=== PATIENT | female | born 1945 | race Caucasian/White ===

== ENCOUNTER 2022-08-18 08:15 | Observation (INO) ==
--- NOTE | 2022-08-14 14:40 | History and Physical Report ---
CHIEF COMPLAINT: Right knee pain, discomfort, and swelling after partial knee replacement. HISTORY OF PRESENT ILLNESS: The patient is a 77-year-old female, who is now about 19 years out from a right partial knee replacement and 18 years out from a left knee replacement. She has done pretty well with these, but over the years, she has developed some pain, discomfort, instability, and swelli ng in her right knee. We have been following this yearly and it has just gradually gotten worse. Mane navarrete has developed progressive varus deformity. She started having more pain. It is fairly global pain . Increased with weightbearing. She would like to have this fixed before she gets too old. PAST MEDICAL HISTORY: Significant for: 1. Elevated cholesterol. 2. Sleep apnea. 3. Anxiety. 4. History of angina. 5. Gastroesophageal reflux disease. PAST SURGICAL HISTORY: Include: 1. Right partial knee replacement done on 05/02/2004. 2. Left total knee replacement done on 08/08/2004. 3. Appendectomy. 4. . 5. Oral surgery. ALLERGIES: AMPICILLIN CAUSES DIARRHEA. CURRENT MEDICATIONS: Include: 1. Atorvastatin. 2. Buspirone. 3. Vitamin D. 4. Vitamin B12. 5. Glucosamine. 6. Omeprazole. 7. Provigil. 8. Zoloft. SOCIAL HISTORY: A 77-year-old white female. She does not smoke. No significant alcohol intake. FAMILY HISTORY: Noncontributory. REVIEW OF SYSTEMS: Negative for diabetes. No chest pain or shortness of breath. No history of DVT or PE. No known bleeding problems. PHYSICAL EXAMINATION: GENERAL: Shows a pleasant elderly female. Looks to be in pretty good health. HEENT: Benign. NECK: Supple. No lymphadenopathy. LUNGS: Clear to auscultation. HEART: Regular rate and rhythm. ABDOMEN: Soft, nontender, and nondistended. EXTREMITIES: Grossly neurovascularly intact except as follows. Examination of the right knee reveals the patient ambulates with a bit of a limp. She has got varus alignment to her knee with a bit of a varus thrust with weightbearing. She has got some moderate chapito us valgus laxity. Minimal knee effusion. Range of motion is 0 to 120. No pain with hip motion. X-RAYS: X-rays of the right knee were reviewed. It shows a right partial knee replacement. 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 The tibial tray is kind of subluxated into the tibia and likely loose. There is a little osteolysis around the keel. She has g ot some patellofemoral arthritis as well. The left knee replacement looks to be in good position without problems. ASSESSMENT: A 77-year-old white female now about 19 years out from a right partial knee replacement and 18 years out from a left total knee replacement with progressive arthritis and possibly loosening of the right partial knee replacement. It served pretty good for a long time, but started to give h er problems and is getting worse with time. She would like to have this fixed. PLAN: We are going to take her to the operating room and do a right revision knee replacement. We w ill convert if we needed to do a full knee replacement. Risks and benefits of this procedure were ex plained to the patient and include, but not limited to DVT, PE, , infection, neurological injury , vascular injury, bleeding problem, pain, limited range of motion, stiffness, failure to relieve her symptoms, incomplete relief of symptoms, need for further surgery in the future, etc. The patient u nderstands and desires to proceed. Informed consent was obtained. We did do an infectious workup. White cell count is normal. Sed rate and C-reactive protein are bot h normal. We did not do an aspiration as there is no clinical suspicion for infection. As far as discharge plans, she is planning to be discharged to home using [facility]. Job ID: [id number]
--- NOTE | 2022-08-14 14:48 | Anesthesiology Consultation ---
Date of Service August 14, 2022 Assessment & Plan (1) Encounter for pre-operative examination: - COVID screening: Per assessment on 08/14: No known COVID-19 positive contacts or current COVID-19 related symptoms. Travel screen negative. Patient vaccinated. At surgeon discretion if preop Covid testing being done. - Outpatient joint assessment: Pt currently scheduled for inpatient pathway. If surgeon requests review for outpatient joint pathway, patient not recommended candidate for outpatient joint program from anesthesia standpoint. Chart Review Chart Review: Acceptable Risk for Surgery and Patient NOT seen in Pre Admission Testing History Surgery Operation Date: 08/18/22 07:00 Proposed Procedures p Right Total Knee Revision, Conversion Unicompartment to Total Knee Arthroplasty - Mark Carnes MD Height/Weight Height: 5 ft 3.5 in Weight: 70.76 kg Allergies Allergy/AdvReac Type Severity Reaction Status Date / Time bee venom protein (honey bee) Allergy Intermediate SWELLING Verified 08/14/22 14:07 ampicillin AdvReac Mild Diarrhea Verified 08/14/22 14:07 Medications Home Medications Medication Instructions Recorded Confirmed Last Taken cholecalciferol (vitamin D3) 25 25 mcg PO QAM 12/27/20 08/14/22 Unknown mcg (1,000 unit) capsule cyanocobalamin (vitamin B-12) 1,000 mcg PO QAM 12/27/20 08/14/22 Unknown 1,000 mcg capsule Prevagen 1 cap PO QAM 03/24/22 08/14/22 Unknown atorvastatin 20 mg tablet 20 mg PO QAM 03/24/22 08/14/22 Unknown buspirone 5 mg tablet 5 mg PO DAILY PRN Anxiety 03/24/22 08/14/22 Unknown glucosamine sulf dipot 1 cap PO BID 03/24/22 08/14/22 Unknown chlr,msm,chond 550 mg-C 30 mg-jane 1 mg capsule (Glucosamine Chondroitin) omeprazole 20 mg capsule,delayed 20 mg PO QAM 03/24/22 08/14/22 Unknown release sertraline 100 mg tablet (Zoloft) 200 mg PO QAM 03/24/22 08/14/22 Unknown Past Medical History Medical History Anxiety Elevated hemidiaphragm Right GERD (gastroesophageal reflux disease) controlled, stable per pt Hearing loss History of blood transfusion Hyperlipidemia Sleep apnea CPAP-compliant Past Family History Family History Other No family history of adverse response to anesthesia Past Surgical History Surgical History History of appendectomy History of section X 2 History of colonoscopy History of left knee replacement History of tooth extraction Status post right partial knee replacement Social History Smoking Status: Never smoker Do You Dip or Chew Tobacco: No Hx Alcohol Use: No alcohol intake frequency: holidays/special occasions only Hx Substance Use: No substance use type: does not use Lab Results Anesthesia Preop Results Results Anesthesia Widget: WBC 6.24 K/ul (4.8-10.8) 08/05/22 Hgb 14.6 g/dl (12.0-16.0) 08/05/22 Hct 44.0 % (37.0-47.0) 08/05/22 Plt 192 K/uL (130-400) 08/05/22 Na 139 mmol/L (136-145) 08/05/22 K 4.3 mmol/L (3.5-5.1) 08/05/22 Cl 102 mmol/L (98-107) 08/05/22 CO2 33 mmol/L (21-32) H 08/05/22 BUN 14 mg/dl (6-23) 08/05/22 Creat 0.89 mg/dl (0.6-1.2) 08/05/22 Glucose Level 98 mg/dl (70-99(Fasting)) 08/05/22 PTT 26.2 Seconds (21.0-31.0) 08/05/22 Blood Type O Positive 08/05/22 Antibody Screen NEGATIVE 08/05/22 Testing Electrocardiogram Date: 04/02/22 NSR, rate 74 bpm Chest X-Ray Date: 04/02/22 No prior studies are available for comparison at the time of dictation. The cardiomediastinal silhouette is unremarkable noting atherosclerotic calcification of the thoracic aorta. Nonspecific interstitial thickening is likely chronic. There is mild elevation of the right hemidiaphragm with bibasilar scarring/atelectasis. There are tiny calcified granulomas. The lungs and pleural spaces are otherwise clear. There is no pneumothorax. The skeletal structures are osteopenic. The bony thorax appears intact. IMPRESSION: No active disease in the chest.
[~2022-08-18 08:15] MED LIST: ACETAMINOPHEN 500 MG TAB PO SCH; BUPIVACAINE LIPOSOME/PF 266 MG, BUPIVACAINE/EPINEPHRINE 50 ML, SODIUM CHLORIDE 0.9% PF ... INFIL SCH; CeleBREX 200 MG CAP PO SCH; FAMOTIDINE 20 MG TAB PO SCH; LR 500ML BOLUS, THEN 15ML/HR IV SCH; LR 60ML/HR IV SCH; METOCLOPRAMIDE HCL 10 MG TABLET PO SCH; ROPIVACAINE 0.5% 5 MG/ML 30 ML VIAL ONE; TRANEXAMIC ACID 1,000 MG **IV Intra-op IV SCH; ceFAZolin 2000MG 2,000 MG/15 ML SYR IV SCH
--- NOTE | 2022-08-18 08:54 | History & Physical Bridge Note ---
Date of Service August 18, 2022 History & Physical Bridge Note I have examined the patient, reviewed the History & Physical and in the interval since the performance of the History & Physical I have noted the following changes of clinical significance: no changes noted
[2022-08-18] MEDS ORDERED: fentaNYL citrate PF 100 MCG/2 ML VIAL ONE (09:07)
[2022-08-18] MEDS ORDERED: MIDAZOLAM HCL 1 MG/ML 2ML VIAL ONE (09:08)
[2022-08-18] MEDS ORDERED: HYDROmorphone INJ 1 MG/ML SYRINGE IV PRN (10:09)
[2022-08-18] MEDS ORDERED: ATROPINE SULFATE 0.1 MG/ML 10ML SYR IV PRN (10:09)
[2022-08-18] MEDS ORDERED: ONDANSETRON INJ 2 MG/ML 2 ML VIAL IV PRN ×2 (10:09→13:51)
[2022-08-18] MEDS ORDERED: ePHEDrine sulfate 50 MG/ML AMP IV PRN (10:09)
[2022-08-18] MEDS ORDERED: KETOROLAC 30 MG/ML VIAL IV PRN (10:09)
[2022-08-18] MEDS ORDERED: BUPIVACAINE 0.25% PF 30 ML VIAL ONE (10:46)
[2022-08-18] MEDS ORDERED: EPINEPHrine INJ 1 MG/ML AMP ONE (10:46)
[2022-08-18] MEDS ORDERED: SODIUM CHLORIDE 0.9% PF 50 ML VIAL ONE (10:46)
[2022-08-18] MEDS ORDERED: BUPIVACAINE LIPOSOME 1.3% 266 MG/20 ML VIAL ONE (10:46)
[2022-08-18] MEDS ORDERED: VANCOMYCIN HCL 1000MG/20ML VIAL ONE (11:00)
[2022-08-18] MEDS ORDERED: DEXAMETHASONE SOD INJ 4 MG/ML VIAL ONE (11:19)
[2022-08-18] MEDS ORDERED: KETOROLAC 30 MG/ML VIAL ONE (11:19)
--- NOTE | 2022-08-18 13:33 | Operative Report ---
PG Post Operative Report Pre & Post Diagnosis Operation Date: 08/18/22 10:40 Pre-Op Diagnosis: Painful Right Unicompartment Knee Replacement Post-Op Diagnosis: Painful Right Unicompartment Knee Replacement I identified the patient and participated in the time-out.: Yes Procedure Operation Date: 08/18/22 10:40 Actual Procedures p Right Total Knee Revision with Conversion of Unicompartment to Total Knee Arthroplasty(Right) - Mark Carnes MD Surgeon Mark Carnes MD Personal Injury Paralegal Jose Peralta PA-C Estimated Blood Loss 50 Findings Consistent with Post-Op Diagnosis Operative findings revealed a right partial knee replacement in place. There was subluxation of the tibial component was but it is not grossly loose. She did have surrounding degenerative changes throughout the remaining portion of her knee joint. Small to moderate-sized joint effusion. No signs of infection. Fluids 1500 cc Specimens Right knee joint fluid sent for stat Gram stain aerobic anaerobic culture. Right knee specimen sent for pathology Drains None Complications none Disposition Accompanied Patient To Recovery: No Indications Patient is a 77-year-old female who is now on 18+ years out from a right partial knee replacement. Over the past several years she has developed increased pain discomfort in her knee and x-rays changes progressive arthritic change. She elected proceed with a revision of the partial to a full knee replacement. There is no clinical signs of infection. Description of Procedure Operative implants consist of: 1. Biomet Vanguard size 62.5 right posterior stabilized femoral component. 2. Biomet Vanguard III 60 size 67 tibial tray with a 12 x 80 mm stem, 2.5 mm offset, small cruciate wing. 3. 16 mm posterior stabilized polyethylene insert. 4. 28 x 8 all poly patella. The patient was taken the operating, identified, placed on the operating table supine position protectors were properly padded. IV antibiotics tried by anesthesia team. A spinal anesthetic and been implemented holding area. Marcos catheter was placed in sterile fashion. Right Tetrick was then placed in the right lower extremity then prepped and draped in usual sterile fashion. The right leg was elevated exsanguinated with the use of an Esmarch and the tourniquet was placed at 300 mmHg. An anterior approach of the right knee was then performed using a longitudinal incision over the front of the knee. We used the previous incision and extended it proximally and just slightly distally . Sharp dissection Through subcutaneous tissue down the extensor mechanism. A medial parapatellar arthrotomy incision was made. Some subperiosteal dissection was carried out medially but the fat pad was dissected from Neath patella tendon. Lateral patellofemoral ligament release. A complete synovectomy was performed. We did send some joint fluid off for stat Gram stain and aerobic and anaerobic culture. The synovium was fairly normal-looking. There was no clinical signs of infection. The ACL and PCL were then released from the distal femur. The tibia subluxated anteriorly. I then used the ACL sawblade to disrupt the interface between the tibial component and the bone. We able to remove this without difficulty. The IM canal the tibia was then initiated and reamed up to a size 12. The 12 reamer was left in place and the intramedullary cutting guide was used to cut the tibia. It was cut almost flush with the medial side. This did take a fairly large piece off laterally. We got pretty good bone medially as well. This was then sized to a size 67. The proximal tibia was prepared for a 67 tray with a 12 mm offset stem and a small cruciate wing. The implant was assembled and fit nicely. Attention drawn the femur. The distal femur was entered with a sharp drill. The intramedullary canal was suction. A right 5 degree valgus cutting guide was placed. Distal femoral cutting block was pinned in place. Distal femoral cut was made to take an additional 3 mm of bone off distal femur. I could not cut through the medial side completely due to the components I did use the ACL sawblade to loosen this I removed the femoral component. I then completed the distal femoral cut. We sized the femur to a size 62.5. The AP cutting block was placed. We had lined this with the epicondylar axis due to deficiency medial and posterior medially. The AP cutting block was pinned in place. The anterior cut, anterior chamfer, posterior cut, posterior chamfer cuts were made. The box cutting guide was placed in just slight lateral and the box cut was made. The knee was flexed with the remnants of the medial and lateral menisci were excised. The osteophytes taken off the posterior aspect of femur. Trial femoral component was placed. I then trialed the knee and the 60 mm insert fit most appropriately. Attention drawn the patella. The patella was cleaned of all soft tissues. Patella thickness measured 20 mm in thickness was cut down to 13. Was sized to a size 28 patella. The locals were drilled for the 28 patella. Lateral osteophytes removed. Patella button was placed. Knee was taken through range of motion patella tracked nicely with no thumbs test. Attention drawn to placing permanent components. All trial components were removed. Bone plug was placed in the distal femur to limit blood loss. Double batch Palacos G cement was mixed. I did add an additional 2 g of vancomycin due to this revision surgery. A 62.5 right Vanguard posterior stabilized femoral component was then placed followed by a 67 tibial tray with the stem and small cruciate wing, a 16 mm post stabilized polyethylene insert, and a 28 x 8 all Paller patella. The knee was brought out into full extension until the cement hardened. Of note, we did have difficulty impacting the stem into the tibia completely we left about 2 mm proud. Had excellent cement mantle and this was felt to be ideal considering her bone stock. We initially placed the trial poly and then a 28 x 8 all Paller patella. The knee was brought out in full extension till cement hardened. Final cement check was then performed. We irrigated the wound extensively. The tourniquet was let down for turn time of 84 minutes. I then remove the trial poly and put the permanent poly in place. The patella tracked nicely. Attention drawn toward closing. The wounds irrigated cosigns pulsatile lavage solution. We did inject locally with 100 cc of combination of 20 cc of Exparel, 30 cc normal saline, 50 cc of quarter percent Marcaine with epinephrine. Patient did receive 1 g tranexamic acid. Extensor mechanism then closed with combination 1 PDS suture #1 Vicryl suture in a [id number] fashion. Extensor mechanism checked found to be intact with subcutaneous tissue then closed with 2 Dexon suture in a buried interrupted fashion skin was closed skin amada. Leg was then cleaned and dried a sterile dressing was Xeroform, 4 fours, sterile cast padding, Jayce bandage were applied. Patient then transferred to the recovery room in stable condition. Patient tolerated procedure well no complications. Jose Peralta, my physician food trades assistants, was present for the entire procedure. His assistance was essential and required for appropriate patient positioning, prepping and draping, surgical exposure, performing the technical details of the operation, placement the implants, closure of the wound, and placement of the sterile bandage. I attest to the content of the Intraoperative Record and any orders documented therein. Any exceptions are noted below.
--- NOTE | 2022-08-18 13:41 | Anesthesiology Progress Note ---
Date of Service August 18, 2022 Anesthesia Post Procedure Vital Signs Vital Signs: Temp Pulse Resp BP Pulse Ox O2 Del Method 08/18/22 13:30 78 17 137/72 97 Room Air 08/18/22 13:22 36.4 C L 89 18 140/82 96 Room Air 08/18/22 09:26 37.2 C 84 20 154/90 H 96 Room Air Transfer of Care Handoff Completed per policy Notes Mental Status: alert / awake / arousable Patient Amnestic to Procedure: Yes Nausea / Vomiting: adequately controlled Pain: adequately controlled Airway Patency, RR, SpO2: stable & adequate BP & HR: stable & adequate Hydration State: stable & adequate Neuraxial Anesthesia: was administered and sensory block is resolving Anesthetic Complications: no major complications apparent
[2022-08-18] MEDS ORDERED: oxyCODONE HCL IR 5 MG TAB (IMMEDIATE RELEASE) PO PRN (13:51)
[2022-08-18] MEDS ORDERED: HYDROmorphone INJ 0.5 MG/0.5 ML SYR IV PRN (13:51)
[2022-08-18] MEDS ORDERED: NALOXONE HCL 0.4 MG/1 ML VIAL/CARP IV PRN (13:51)
[2022-08-18] MEDS ORDERED: ALUMINUM/MAGNESIUM SUSP 30 ML UDC PO PRN (13:51)
[2022-08-18] MEDS ORDERED: bisacodyL 10 MG SUPP PR PRN (13:51)
[2022-08-18] MEDS ORDERED: METOCLOPRAMIDE HCL INJ 5 MG/ML 2 ML VIAL IV PRN (13:51)
[2022-08-18] MEDS ORDERED: busPIRone 5 MG TAB PO PRN (13:51)
[2022-08-18] MEDS ORDERED: MAGNESIUM HYDROXIDE SUSP 30 ML UDC PO PRN (13:51)
--- NOTE | 2022-08-18 14:07 | XRay Report ---
XR knee RT 1 or 2V routine HISTORY: 77 years-old Female Surgical Post Op right knee arthroplasty COMPARISON: Knee radiographs 04/02/2022 TECHNIQUE: 2 views the right knee FINDINGS: Total joint arthroplasty with patellar resurfacing. Anterior midline skin amada are present along w ith expected postoperative soft tissue swelling with deep tissue air. No acute fracture, dislocation or unexpected opaque foreign body. IMPRESSION: Total joint arthroplasty with expected postoperative changes. ACT 112: Negative or not required by law. The above report was generated using voice recognition software. It may contain grammatical, syntax o r spelling errors. Electronically signed by: Wang Ruelas M.D. 08/18/2022 2:06 PM
[2022-08-18] MEDS: SODIUM CHLORIDE 0.9% 1000ML 1,000 ML IV SCH ×2 (14:08→23:35)
[2022-08-18] MEDS: ASCORBIC ACID 500 MG TAB PO SCH (15:20)
[2022-08-18] MEDS: ACETAMINOPHEN 500 MG TAB PO SCH ×2 (15:20→21:22)
[2022-08-18] MEDS: ceFAZolin 1000MG 1,000 MG/7.5 ML SYR IV SCH (19:27)
[2022-08-18] MEDS: DOCUSATE SODIUM 100 MG CAP PO SCH (19:29)
[2022-08-18] MEDS ORDERED: TRANEXAMIC ACID / 0.7% NACL 1,000 MG/100 ML BAG IV SCH (19:30)
[2022-08-18] MEDS ORDERED: NON-FORMULARY MEDICATION (Glucos Sul 2kcl-Msm-Chond-C-Mn [Glucosamine Chondroitin] 550-30- PO SCH (21:00)
[2022-08-18] MEDS ORDERED: SENNA 8.6 MG TAB PO SCH (21:00)
[2022-08-18] MEDS: ASPIRIN 81 MG ECTAB PO SCH (21:21)
[2022-08-19] MEDS: ceFAZolin 1000MG 1,000 MG/7.5 ML SYR IV SCH (02:58)
[2022-08-19] MEDS: ACETAMINOPHEN 500 MG TAB PO SCH (06:03)
[2022-08-19 07:00] LABS: Hematocrit (blood only) 33.5 % (37.0-47.0); Hemoglobin 11.6 g/dl (12.0-16.0); Mean Corpuscular Hgb Conc 34.6 g/dL (32.0-36.0); Mean Corpuscular Volume 92.5 fL (80.0-100.0); Mean Platelet Volume 10.3 fL (9.4-12.4); Platelet Count 143 K/uL (130-400); RDW Coefficient of Variation 12.4 % (11.5-14.5); Red Blood Count 3.62 M/uL (4.20-5.40); White Blood Count 10.88 K/ul (4.8-10.8)
[2022-08-19 07:43] LABS: BUN Creatinine Ratio 16.7 (10-20); Calcium 8.3 mg/dl (8.5-10.1); Creatinine Clr Calc Pharmacy 54.8 ml/min; Est GFR (African American) 78.2 ml/min; Est GFR (Non-African American) 67.5 ml/min; Potassium 3.5 mmol/L (3.5-5.1)
[2022-08-19] MEDS ORDERED: dexAMETHasone 10 MG in SYRINGE 0 ML IV SCH (08:00)
[2022-08-19] MEDS: ASCORBIC ACID 500 MG TAB PO SCH (08:21)
[2022-08-19] MEDS: ASPIRIN 81 MG ECTAB PO SCH (08:21)
[2022-08-19] MEDS: DOCUSATE SODIUM 100 MG CAP PO SCH (08:22)
[2022-08-19] MEDS ORDERED: ASPIRIN 81 MG ECTAB PO SCH (09:00)
[2022-08-19] MEDS ORDERED: PANTOprazole 40 MG TAB PO SCH (09:00)
[2022-08-19] MEDS ORDERED: DOCUSATE SODIUM/SENNA 50/8.6MG TAB PO SCH (09:00)
[2022-08-19] MEDS ORDERED: NON-FORMULARY MEDICATION (Prevagen 1 CAP) PO SCH (09:00)
[2022-08-19] MEDS ORDERED: CYANOCOBALAMIN (B-12) 500 MCG TABLET PO SCH (09:00)
[2022-08-19] MEDS ORDERED: SERTRALINE HCL 100 MG TABLET PO SCH (09:00)
[2022-08-19] MEDS ORDERED: CHOLECALCIFEROL 1,000 UNITS 25 MCG TAB PO SCH (09:00)
[2022-08-19] MEDS ORDERED: MULTIVITAMIN TAB PO SCH (09:00)
[2022-08-19] MEDS ORDERED: ATORVASTATIN 20 MG TAB PO SCH (09:00)
--- NOTE | 2022-08-19 10:52 | Progress Notes ---
DATE OF SERVICE: 08/19/2022. SUBJECTIVE: A 77-year-old white female postoperative day 1 from a left revision knee arthroplasty co nverting a partial to full knee replacement. She is doing well. A little bit of pain this morning, but therapy went well. She is hoping to go home. OBJECTIVE: VITAL SIGNS: Temperature 36.8. Vital signs are stable. GENERAL: Shows a pleasant, elderly female. He is sitting up in her bedside chair, looks reasonably comfortable. EXTREMITIES: Examination of the right leg reveals the dressing to be clean, dry and intact. She can dorsiflex and plantarflex her foot appropriately. She can do a straight leg raise with just a littl e bit of a lag, no pain with hip motion. LABORATORY DATA: Hemoglobin 11.6. Hematocrit 33.5. Electrolytes are stable. ASSESSMENT: A 77-year-old white female postoperative day 1 from a right revision arthroplasty and co nversion of a partial to full knee replacement. She is doing well. Pain has been controlled. Thera py went okay. PLAN: 1. DVT prophylaxis includes thigh-high TEDs, SCDs, and aspirin twice a day. 2. PT/OT, weightbear as tolerated. Right total knee protocol. 3. Pain control, doing okay with current pain regimen. 4. Disposition: Plan to discharge to home with some home health likely later today. Job ID: [id number]
--- NOTE | 2022-08-25 09:01 | Discharge Summary ---
Date of Service August 25, 2022 Discharge Data Procedures Performed Operation Date: 08/18/22 10:40 Actual Procedures p Right Total Knee Revision with Conversion of Unicompartment to Total Knee Arthroplasty(Right) - Mark Carnes MD Hospital Course (1) Status post total right knee replacement: This is a 77 year old patient admitted on 08/18/22 and underwent conversion of a partial knee to a total knee arthroplasty. She tolerated the procedure well and there were no complications. Transferred to the PACU post op and later to the orthopedic floor for further care. She was given ancef for antibiotic prophylaxis. She was also given JORDAN stockings, SCDs, and aspirin for DVT prophylaxis. Hemoglobin, hematocrit, and vital signs were monitored during her hospital stay and remained stable. Did not require any blood transfusions. There were no complications during her hospital stay. By post op day #1 the patient was tolerating a regular diet, pain was reasonably controlled with oral pain medicine, and she was participating in physical therapy. On post op day #1 the patient was discharged home and set up with home health care. She was given printed discharge instructions including p rescriptions for extra strength tylenol, aspirin, cefadroxil, ketorolac, zofran, senokot, and oxycodone. Continue physical therapy, weight bearing as tolerated. Continue JORDAN stockings. Follow up approximately 2 weeks post op or sooner if there are problems or concerns. Coding Level of Care Code None Diagnoses Status post total right knee replacement Z96.651
== END 2022-08-19 13:37 | disposition home health service (06) | DRG 468 ==
LOC: ASU 08:15 → 3E 08:15